=== PATIENT | female | born 1940 | race Asian ===

== ENCOUNTER → 2018-06-25 | Outpatient (CLI) | payer MEDICARE ==
--- NOTE | 2018-06-25 14:24 | ECHOS ---
STRESS ECHOCARDIOGRAM INDICATIONS: Shortness of breath. BASELINE HEART RATE: 48 BASELINE BLOOD PRESSURE: 102/53 MAXIMUM HEART RATE: 127 MAXIMUM BLOOD PRESSURE: 138/65 85% MPHR: 122 100% MPHR: 143 METS: 9.7 MAXIMUM STAGE REACHED: 3 TOTAL EXERCISE TIME: 8:00 CLINICAL INFORMATION: The patient was exercised for a total period of 8 minutes. The peak heart rate of 127 was achieved. Maximum blood pressure of 138/65 mmHg was noted. Resting EKG shows normal sinus rhythm with normal UT interval and QRS duration and normal ST-T waves. About [address]-segment depression is noted at the peak exercise. Intermittent PACs were noted. The baseline echocardiographic images reveals normal left ventricular chamber size with mild degree of left ventricular hypertrophy and normal left ventricular systolic functions. Aortic valve is calcified with diminished aortic leaflet excursion suggestive of moderate degree of aortic stenosis. In the immediate postexercise period normal increase in the wall thickness and contractility is noted. FINAL IMPRESSION: This stress echocardiographic study is negative for stress-induced ischemia. The patient has a calcified aortic valve with a suggestion of moderate degree of aortic stenosis. There was about [address]-segment depression noted without any symptoms of angina. This could be secondary to hypertension and aortic stenosis. MMODL / IJN: [id number] /
== END | disposition home or self-care (01) ==
LOC: RADNMMAIN 08:41
PROVIDERS: ATTEND Internal Medicine Cardiovascular Disease
DX: I35.8 Other nonrheumatic aortic valve disorders (principal); R94.31 Abnormal electrocardiogram [ECG] [EKG]
CPT/HCPCS: 93351

== ENCOUNTER → 2022-06-16 | Outpatient (CLI) | payer MEDICARE ==
[2022-06-16 11:54] LABS: Amorphous Sediment,Urine Rare /hpf; Appearance,Urine Clear (Clear); Bacteria,Urine Occasional /hpf; Bilirubin,Urine Negative (Negative); Blood,Urine Negative (Negative); Color,Urine Yellow; Glucose,Urine (UA) Negative (Negative); Ketones,Urine Negative (Negative); Leukocyte Esterase,Urine Small (Negative); Mucus,Urine Rare /hpf; Nitrite,Urine Positive (Negative); Protein,Urine Trace (Negative); RBC,Urine 2 /hpf (0-5); Squamous Epithelial Cell,Urine 1 /hpf (0-4); Urobilinogen,Urine <2.0 mg/dL (<2.0); WBC,Urine 5 /hpf (0-5)
[2022-06-16 14:53] LABS: HCT 37.2 % (37.2-46.3); HGB 12.2 g/dL (12.0-15.0); MCH 30.8 pg (27.0-32.0); MCHC 32.8 g/dL (32.0-37.0); MCV 93.9 fL (80.0-97.0); Mean Platelet Volume 12.4 fL (9.5-12.2); NRBC Per 100 WBC 0 /100 WBCS (0.0-0.0); Platelet Count 130 X 10*3/uL (140-440); RBC 3.96 X 10*6/uL (4.10-5.20); RDW 12.3 % (11.5-14.5); WBC 5.57 X 10*3/uL (4.50-10.00)
[2022-06-16 16:09] LABS: INR 0.94 (0.90-1.11); Prothrombin Time 10.4 sec (9.9-11.9)
[2022-06-16 16:29] LABS: ALT 15 U/L (8-44); AST 19 U/L (13-35); African American GFR (CKD) 63.9 (60.0-200.0); Albumin 4.3 g/dL (3.8-4.9); Albumin/Globulin Ratio 1.73 (1.60-3.17); Alkaline Phosphatase 90 U/L (41-126); BUN/Creat Ratio 23.52 Ratio (12.00-20.00); Bilirubin, Conjugated <0.20 mg/dL (0.20-0.40); Blood Urea Nitrogen 22.7 mg/dL (9.0-27.0); Calcium 9.3 mg/dL (8.7-10.3); Carbon Dioxide 25.9 mmol/L (20.0-27.5); Chloride 106 mmol/L (96-109); Globulin 2.5 g/dL (1.6-3.3); Glucose 99 mg/dL (70-110); Non-African American GFR(CKD) 55.1 (60.0-200.0); Potassium 4.5 mmol/L (3.5-5.5); Sodium 143 mmol/L (135-145); Total Protein 6.7 g/dL (6.2-8.2); VLDL Calculation 16.62 mg/dL (5.00-40.00)
== END | disposition home or self-care (01) ==
LOC: LABWHC1 09:43
PROVIDERS: ATTEND Internal Medicine Cardiovascular Disease
DX: I25.10 Atherosclerotic heart disease of native coronary artery without angina pectoris (principal)
CPT/HCPCS: 36415; 80053; 80061; 81001; 82248; 85027; 85610

== ENCOUNTER 2025-02-16 15:21 | Inpatient (IN) | payer MEDICARE ==
--- NOTE | 2025-02-16 15:50 | ED ---
General Adult HPI - General Chief complaint: Neuro Symptoms/Deficit Stated complaint: no balance, fallen Time Seen by Provider: 02/16/25 15:31 Source: patient Mode of arrival: wheelchair Limitations: no limitations - History of Present Illness Initial comments: Patient presents to the ED with her for evaluation. Patient states that she noticed that she noticed that she was off balance towards her left side when she got out of her car at about 6 PM yesterday, and she feels that her left leg was weak at that time. Patient states that these symptoms then resolved, but returned again at about 1 AM this morning when she was going to the bathroom. Patient states that she fell in the bathroom due to this left leg weakness, and she bumped/injured her left forearm when she fell. Patient denies sustaining any other injury from her fall. Patient states that she had mild left leg weakness earlier today as well, but she denies having any left leg weakness currently. Patient also states that she has had a mild headache for the past couple of days. Patient denies sustaining a head injury when she fell, and she also denies LOC. Patient states that she does take aspirin daily, and she states that she took 2 baby aspirin earlier today. Patient also states that she has had urinary frequency since yesterday, but she denies dysuria or hematuria. Patient denies fever or chills, focal numbness, visual changes, speech difficulty, neck/back/lower extremity pain, chest pain, dyspnea, palpitations, dizziness, syncope, abdominal pain, nausea or vomiting, diarrhea, bloody or melanotic stool, or any other symptoms or complaints. - Related Data Home Medications Medication Instructions Recorded Confirmed Aspirin EC [Ecotrin Low Dose] 81 mg PO DAILY 02/16/25 02/16/25 NIFEdipine XL [Procardia Xl] 30 mg PO DAILY 02/16/25 02/16/25 lisinopriL [Prinivil] 20 mg PO HS 02/16/25 02/16/25 Allergies Allergy/AdvReac Type Severity Reaction Status Date / Time Sulfa (Sulfonamide AdvReac headache Verified 02/16/25 18:12 Antibiotics) and blood pressure issues Review of Systems ROS Statement: Those systems with pertinent positive or pertinent negative responses have been documented in the HPI. ROS Other: All systems not noted in ROS Statement are negative. Past Medical History Past Medical History: Hyperlipidemia, Hypertension History of Any Multi-Drug Resistant Organisms: None Reported Past Surgical History: No Surgical Hx Reported Additional Past Surgical History / Comment(s): aortic valve replacement (2022) Past Psychological History: No Psychological Hx Reported Smoking Status: Never smoker Past Alcohol Use History: None Reported Past Drug Use History: None Reported General Exam Limitations: no limitations General appearance: alert, in no apparent distress Head exam: Present: atraumatic, normocephalic Eye exam: Present: normal appearance, PERRL, EOMI ENT exam: Present: mucous membranes moist, TM's normal bilaterally Neck exam: Present: normal inspection, full ROM, other (Trachea is in midline). Absent: tenderness Respiratory exam: Present: normal lung sounds bilaterally. Absent: respiratory distress, wheezes, rales, rhonchi, stridor Cardiovascular Exam: Present: regular rate, normal rhythm, normal heart sounds, other GI/Abdominal exam: Present: soft. Absent: distended, tenderness, guarding Extremities exam: Present: full ROM, other (Swelling, ecchymosis and tenderness (consistent with hematoma) is noted along the patient's left mid forearm region). Absent: pedal edema Back exam: Present: normal inspection. Absent: tenderness Neurological exam: Present: alert, oriented X3, CN II-XII intact, other (NIH stroke scale score = 0). Absent: motor sensory deficit Psychiatric exam: Present: normal affect Skin exam: Present: warm, dry, intact Course Vital Signs 02/16/25 02/16/25 02/16/25 15:24 15:40 16:52 Temperature 97.2 F L Pulse Rate 66 59 L 57 L Respiratory 16 18 18 Rate Blood Pressure 156/70 148/72 150/70 O2 Sat by Pulse 98 98 97 Oximetry 02/16/25 18:09 Temperature Pulse Rate 67 Respiratory 18 Rate Blood Pressure 146/75 O2 Sat by Pulse 98 Oximetry - Reevaluation(s) Reevaluation #1: 02/16/25 18:09 Patient denies development of any new symptoms while in the ED. Patient continues to have a normal/nonfocal neurological exam. Patient and are aware the patient's test results, and they both agree with hospital admission at this time. 02/16/25 18:16 Case, H&P, test results and ED management were discussed with Dr. Coronado. She accepts hospital admission. She agrees with the neurology consultation. She has no further recommendations at this time. EKG Findings - EKG Comments: EKG Findings:: ED physician interpretation (interpreted by me): Normal sinus rhythm, no ectopy, ventricular rate of 61 bpm, normal AR and QRS intervals, normal QT interval, normal axis, no ST or T wave abnormality Medical Decision Making - Medical Decision Making Was pt. sent in by a medical professional or institution (, PA, WOOLING MACHINE OPERATOR, urgent care, hospital, or half-way...) When possible be specific @ -No Did you speak to anyone other than the patient for history (EMS, parent, family, police, friend...)? What history was obtained from this source @ -No Did you review nursing and triage notes (agree or disagree)? Why? @ -I reviewed and agree with nursing and triage notes Were old charts reviewed (outside hosp., previous admission, EMS record, old EKG, old radiological studies, urgent care reports/EKG's, half-way records)? Report findings @ -No old charts were reviewed Differential Diagnosis (chest pain, altered mental status, abdominal pain women, abdominal pain men, vaginal bleeding, weakness, fever, dyspnea, syncope, headache, dizziness, GI bleed, back pain, seizure, CVA, palpatations, mental health, musculoskeletal)? @ -Headache, intracranial hemorrhage, intracranial mass, CVA, TIA, ra diculopathy, neuropathy, balance issues, fall, contusion, fracture, hematoma, electrolyte abnormality, dehydration, renal disease, this is not meant to be a complete list. EKG interpreted by me (3pts min.). @ -As above X-rays interpreted by me (1pt min.). @ -Chest x-ray is reviewed myself and shows no acute cardiopulmonary process. I agree with the radiologist's interpretation as above. CT interpreted by me (1pt min.). @ -Noncontrast head CT was reviewed myself and shows no acute intracranial abnormality. I agree with the radiologist's interpretation as above. U/S interpreted by me (1pt. min.). @ -None done What testing was considered but not performed or refused? (CT, X-rays, U/S, lab s)? Why? @ -None What meds were considered but not given or refused? Why? @ -None Did you discuss the management of the patient with other professionals (professionals i.e. , PA, WOOLING MACHINE OPERATOR, lab, RT, psych nurse, social service coordinator, disability hearing officer, teacher, chief contract officer, disease case manager)? Give summary @ -As above. Was smoking cessation discussed for >3mins.? @ -No Was critical care preformed (if so, how long)? @ -Yes, 35 minutes. Were there social determinants of health that impacted care today? How? (Homeles sness, low income, unemployed, alcoholism, drug addiction, transportation, low edu. Level, literacy, decrease access to med. care, senior living, rehab)? @ -No Was there de-escalation of care discussed even if they declined (Discuss DNR or withdrawal of care, Hospice)? DNR status @ -No What co-morbidities impacted this encounter? (DM, HTN, Smoking, COPD, CAD, Cancer, CVA, ARF, Chemo, Hep., AIDS, mental health diagnosis, sleep apnea, morbid obesity)? @ -None Was patient admitted / discharged? Hospital course, mention meds given and route, prescriptions, significant lab abnormalities, going to OR and other pertinent info. @ -Patient has a normal/nonfocal neurological exam in the ED and an NIH stroke scale score of 0. Patient's noncontrast head imaging is negative. Patient's CT angiography neck demonstrates a 54% stenosis of the right carotid bifurcation. Patient has been treated with aspirin in the ED. Will admit the patient to the hospital for further TIA/CVA workup and neurology consultation. Dr. Coronado has accepted hospital admission. Patient and agree with this plan. Undiagnosed new problem with uncertain prognosis? @ -No Drug Therapy requiring intensive monitoring for toxicity (Heparin, Nitro, Insulin, Cardizem)? @ -No Were any procedures done? @ -No Diagnosis/symptom? @ -Headache, intermittent left lower extremity weakness, fall, left forearm contusion Acute, or Chronic, or Acute on Chronic? @ -Acute Uncomplicated (without systemic symptoms) or Complicated (systemic symptoms)? @ -Default Side effects of treatment? @ -No Exacerbation, Progression, or Severe Exacerbation? @ -No Poses a threat to life or bodily function? How? (Chest pain, [place], [place], pneumonia, PE, COPD, DKA, ARF, appy, cholecystitis, CVA, Diverticulitis, Homicidal, Suicidal, threat to staff... and all critical care pts) @ -No - Lab Data Result diagrams: 02/16/25 15:36 02/16/25 15:36 Lab Results 02/16/25 02/16/25 02/16/25 Range/Units 15:36 15:36 15:36 WBC 7.30 (4.50-10.00) 10*3/uL RBC 4.03 L (4.10-5.20) 10*6/uL Hgb 12.6 (12.0-15.0) g/dL Hct 37.4 (37.2-46.3) % MCV 92.8 (80.0-97.0) fL MCH 31.3 (27.0-32.0) pg MCHC 33.7 (32.0-37.0) g/dL Plt Count 120 L (140-440) 10*3/uL MPV 11.9 (9.5-12.2) fL Immature Gran % (Auto) 0.1 % Neutrophils % 58.2 % Lymphocytes % 31.5 % Monocytes % 7.9 % Eosinophils % 1.5 % Basophils % 0.8 % Immature Gran # 0.01 (0.00-0.04) 10*3/uL Neutrophils # 4.24 (1.80-7.70) 10*3/uL Lymphocytes # 2.30 (0.90-5.00) 10*3/uL Monocytes # 0.58 (0.20-1.00) 10*3/uL Eosinophils # 0.11 (0.04-0.35) 10*3/uL Basophils # 0.06 (0.00-0.10) 10*3/uL PT 10.0 (10.0-12.5) sec INR 0.9 (<1.2) APTT 22.1 (22.0-30.0) sec Sodium 137 (137-145) mmol/L Potassium 4.2 (3.5-5.1) mmol/L Chloride 105 (98-107) mmol/L Carbon Dioxide 23 (22-30) mmol/L Anion Gap 9 mmol/L BUN 33 H (7-17) mg/dL Creatinine 1.16 H (0.52-1.04) mg/dL Est GFR (CKD-EPI)AfAm 50 (>60 ml/min/1.73 sqM) Est GFR (CKD-EPI)NonAf 44 (>60 ml/min/1.73 sqM) Glucose 94 (74-99) mg/dL Calcium 9.5 (8.4-10.2) mg/dL Total Bilirubin 0.6 (0.2-1.3) mg/dL AST 24 (14-36) U/L ALT 18 (4-34) U/L Alkaline Phosphatase 85 (38-126) U/L Creatine Kinase 54 (30-135) U/L Troponin I (0.000-0.034) ng/mL Total Protein 7.0 (6.3-8.2) g/dL Albumin 4.1 (3.5-5.0) g/dL Urine Color Urine Appearance (Clear) Urine pH (5.0-8.0) Ur Specific [place] (1.001-1.035) Urine Protein (Negative) Urine Glucose (UA) (Negative) Urine Ketones (Negative) Urine Blood (Negative) Urine Nitrite (Negative) Urine Bilirubin (Negative) Urine Urobilinogen (<2.0) mg/dL Ur Leukocyte Esterase (Negative) 02/16/25 02/16/25 Range/Units 15:36 16:01 WBC (4.50-10.00) 10*3/uL RBC (4.10-5.20) 10*6/uL Hgb (12.0-15.0) g/dL Hct (37.2-46.3) % MCV (80.0-97.0) fL MCH (27.0-32.0) pg MCHC (32.0-37.0) g/dL Plt Count (140-440) 10*3/uL MPV (9.5-12.2) fL Immature Gran % (Auto) % Neutrophils % % Lymphocytes % % Monocytes % % Eosinophils % % Basophils % % Immature Gran # (0.00-0.04) 10*3/uL Neutrophils # (1.80-7.70) 10*3/uL Lymphocytes # (0.90-5.00) 10*3/uL Monocytes # (0.20-1.00) 10*3/uL Eosinophils # (0.04-0.35) 10*3/uL Basophils # (0.00-0.10) 10*3/uL PT (10.0-12.5) sec INR (<1.2) APTT (22.0-30.0) sec Sodium (137-145) mmol/L Potassium (3.5-5.1) mmol/L Chloride (98-107) mmol/L Carbon Dioxide (22-30) mmol/L Anion Gap mmol/L BUN (7-17) mg/dL Creatinine (0.52-1.04) mg/dL Est GFR (CKD-EPI)AfAm (>60 ml/min/1.73 sqM) Est GFR (CKD-EPI)NonAf (>60 ml/min/1.73 sqM) Glucose (74-99) mg/dL Calcium (8.4-10.2) mg/dL Total Bilirubin (0.2-1.3) mg/dL AST (14-36) U/L ALT (4-34) U/L Alkaline Phosphatase (38-126) U/L Creatine Kinase (30-135) U/L Troponin I <0.012 (0.000-0.034) ng/mL Total Protein (6.3-8.2) g/dL Albumin (3.5-5.0) g/dL Urine Color Colorless Urine Appearance Clear (Clear) Urine pH 6.5 (5.0-8.0) Ur Specific [place] 1.002 (1.001-1.035) Urine Protein Negative (Negative) Urine Glucose (UA) Negative (Negative) Urine Ketones Negative (Negative) Urine Blood Negative (Negative) Urine Nitrite Negative (Negative) Urine Bilirubin Negative (Negative) Urine Urobilinogen <2.0 (<2.0) mg/dL Ur Leukocyte Esterase Negative (Negative) - Radiology Data Chest x-ray: No acute cardiopulmonary disease/process. Left forearm x-rays: No evidence of acute fracture. Noncontrast head CT: 1. No acute intracranial process. 2. Nonspecific white matter changes, likely secondary to chronic small vessel ischemic disease. CT angiography head/neck with IV contrast: 1. No evidence of dissection of the cervical internal carotid arteries or vertebral arteries. 2. 54% stenosis of the right carotid bifurcation. No evidence for significant stenosis of the left carotid bifurcation. 3. No evidence of intracranial high-grade stenosis or intracranial aneurysm. Critical Care Time Critical Care Time: Yes Total Critical Care Time: 35 Disposition Clinical Impression: Headache, Left-sided weakness, Fall, Contusion of left arm Disposition: ADMITTED IP TO THIS HOSP Condition: Stable Is patient prescribed a controlled substance at d/c from ED?: No Referrals: Cammie Taylor DO [Primary Care Provider] - 1-2 days Time of Disposition: 18:16
[2025-02-16] MEDS: SODIUM CHLORIDE 0.9% 500 ML 500 ML IV ONE (16:01)
[2025-02-16 16:02] LABS: Basophils # (A) 0.06 10*3/uL (0.00-0.10); Basophils % (A) 0.8 %; Eosinophils # (A) 0.11 10*3/uL (0.04-0.35); Eosinophils % (A) 1.5 %; HCT 37.4 % (37.2-46.3); HGB 12.6 g/dL (12.0-15.0); Lymphocytes % (A) 31.5 %; MCH 31.3 pg (27.0-32.0); MCHC 33.7 g/dL (32.0-37.0); MCV 92.8 fL (80.0-97.0); Mean Platelet Volume 11.9 fL (9.5-12.2); Monocytes # (A) 0.58 10*3/uL (0.20-1.00); Monocytes % (A) 7.9 %; Neutrophils # (A) 4.24 10*3/uL (1.80-7.70); Neutrophils % (A) 58.2 %; Platelet Count 120 10*3/uL (140-440); RBC 4.03 10*6/uL (4.10-5.20); RDW 12.5 % (11.5-14.5)
[2025-02-16 16:08] LABS: Appearance,Urine Clear (Clear); Bilirubin,Urine Negative (Negative); Blood,Urine Negative (Negative); Color,Urine Colorless; Glucose,Urine (UA) Negative (Negative); Ketones,Urine Negative (Negative); Leukocyte Esterase,Urine Negative (Negative); Nitrite,Urine Negative (Negative); PH, Urine 6.5 (5.0-8.0); Protein,Urine Negative (Negative); Specific Gravity,Urine 1.002 (1.001-1.035); Urobilinogen,Urine <2.0 mg/dL (<2.0)
[2025-02-16 16:11] LABS: INR 0.9 (<1.2); Partial Thromboplastin Time 22.1 sec (22.0-30.0)
[2025-02-16 16:48] LABS: ALT 18 U/L (4-34); AST 24 U/L (14-36); African American GFR (CKD) 50 (>60 ml/min/1.73 sqM); Albumin 4.1 g/dL (3.5-5.0); Alkaline Phosphatase 85 U/L (38-126); Anion Gap 9 mmol/L; Blood Urea Nitrogen 33 mg/dL (7-17); Calcium 9.5 mg/dL (8.4-10.2); Carbon Dioxide 23 mmol/L (22-30); Chloride 105 mmol/L (98-107); Creatine Kinase 54 U/L (30-135); Glucose 94 mg/dL (74-99); Non-African American GFR(CKD) 44 (>60 ml/min/1.73 sqM); Potassium 4.2 mmol/L (3.5-5.1); Sodium 137 mmol/L (137-145); Total Bilirubin 0.6 mg/dL (0.2-1.3)
--- NOTE | 2025-02-16 16:54 | XR ---
EXAMINATION TYPE: XR forearm LT DATE OF EXAM: 02/16/2025 4:31 PM COMPARISON: None CLINICAL INDICATION: Female, 84 years old with history of left forearm injury, pain TECHNIQUE: XR forearm LT; forearm was examined in AP and lateral projections. FINDINGS: No acute osseous pathology, soft tissue swelling or joint dislocations are seen. IV cannul a present. IMPRESSION: No evidence of acute fracture. [facility], , 02/16/2025 4:52 PM
--- NOTE | 2025-02-16 16:55 | XR ---
EXAMINATION TYPE: XR chest 2V DATE OF EXAM: 02/16/2025 4:31 PM COMPARISON: None CLINICAL INDICATION: Female, 84 years old with history of altered mental status; TECHNIQUE: XR chest 2V Frontal and lateral views of the chest. FINDINGS: Lungs/Pleura: There is no evidence of pleural effusion, focal consolidation, or pneumothorax. Pulmonary vascularity: Unremarkable. Heart/mediastinum: Cardiomediastinal silhouette is unremarkable. Post aortic valve repair changes. A therosclerosis of the arterial vasculature. Musculoskeletal: No acute osseous pathology. IMPRESSION: No acute cardiopulmonary disease/process. [facility], , 02/16/2025 4:53 PM
--- NOTE | 2025-02-16 17:25 | CT ---
EXAMINATION TYPE: CT brain wo con DATE OF EXAM: 02/16/2025 5:09 PM COMPARISON: None. CLINICAL INDICATION: Female, 84 years old with history of Neuro deficit, acute, stroke suspected, cva TECHNIQUE: Brain: Axial CT images of the brain were obtained with coronal and sagittal reformats created and rev iewed. Contrast used: None. Oral contrast used: None. CT DLP: 1176.6 mGycm, Automated exposure control for dose reduction was used. FINDINGS: Brain: Extra-axial spaces: No abnormal extra-axial fluid collections. Ventricular system: Dilatation in proportion to cerebral atrophy. Cerebral parenchyma: Cerebral atrophy. No acute intraparenchymal hemorrhage or mass effect. The porras -white junction is well differentiated. Scattered hypoattenuating areas are seen within the white mat ter. Cerebellum: Unremarkable. Mass effect: No evidence of midline shift. Intracranial vasculature: Atherosclerotic calcifications of the intracranial vessels. Soft tissues: Normal. Calvarium/osseous structures: No depressed skull fracture. Paranasal sinuses and mastoid air cells: Mild scattered paranasal sinus disease. Visualized orbits: Orbital contents are intact. IMPRESSION: 1. No acute intracranial process. 2. Nonspecific white matter changes, likely secondary to chronic small vessel ischemic disease. [facility], , 02/16/2025 5:22 PM
--- NOTE | 2025-02-16 18:01 | CT ---
EXAMINATION TYPE: CT angio head neck DATE OF EXAM: 02/16/2025 5:35 PM COMPARISON: . CLINICAL INDICATION: Female, 84 years old with history of Neuro deficit, acute, stroke suspected; PHH , cva TECHNIQUE: Axially acquired helical CT angiogram of the head and neck was obtained with contrast. Axi al images are supplemented with 3D reconstructions and MIP images which were post-processed at an in dependent workstation. NASCET criteria used. Contrast used:65 mL of Isovue 370 with IV Contrast, Oral contrast used: None. CT DLP: 315.9 mGycm, Automated exposure control for dose reduction was used. FINDINGS: CTA HEAD: No evidence of acute intracranial hemorrhage, mass effect, or midline shift. The ventricles, sulci, a nd cisterns are unremarkable. Arachnoid granulation seen posterior skull. Vertebral arteries: The vertebral arteries are patent. Vertebral artery dominance: Codominant Basilar artery: The basilar artery is intact. The basilar artery bifurcation is normal. Internal Carotid arteries: The cervical, petrous, cavernous and supraclinoid segments are normal. JODI: Patent with no evidence of aneurysm. ACOM: Present without evidence of aneurysm. MCA: Patent with no evidence of aneurysm. PRODUCT APPLICATIONS SCIENTIST: Patent with no evidence of aneurysm. PCOM: Hypoplastic bilaterally. Dural sinuses: Patent. CTA NECK: Right Carotid System: The common carotid and external carotid arteries are patent. 54 % stenosis at the carotid bifurcation secondary to calcified/noncalcified plaque. The rest of the internal carotid artery is patent. Left Carotid System: The common carotid and external carotid arteries are patent. There is less than 25% stenosis at the c arotid bifurcation secondary to calcified plaque. The rest of the internal carotid artery is patent. Vertebral arteries are patent without evidence hemodynamically significant stenosis. There is a three-vessel aortic arch. The origins of the great vessels are patent. No evidence of hemo dynamically significant stenosis. No evidence for focal lesions consolidation, pneumothorax or pleural effusion. IMPRESSION: 1. No evidence of dissection of the cervical internal carotid arteries or vertebral arteries. 2. 54% stenosis of the right carotid bifurcation. No evidence for significant stenosis of the left c arotid bifurcation. 3. No evidence of intracranial high-grade stenosis or intracranial aneurysm. [facility], , 02/16/2025 5:59 PM
[2025-02-16] MEDS: ASPIRIN 81 MG PO STA (18:08)
[2025-02-16] MEDS ORDERED: NALOXONE 0.4 MG/ML 1 ML VIAL IV PRN (18:20)
--- NOTE | 2025-02-16 23:16 | P.HPIM ---
History of Present Illness H&P Date: 02/16/25 Chief Complaint: Of balance/fall Patient presents to the ED with her for evaluation. Patient states that she noticed that she noticed that she was off balance towards her left side when she got out of her car at about 6 PM yesterday, and she feels that her left leg was weak at that time. Patient states that these symptoms then resolved, but returned again at about 1 AM this morning when she was going to the bathroom. Patient states that she fell in the bathroom due to this left leg weakness, and she bumped/injured her left forearm when she fell. Patient denies sustaining any other injury from her fall. Patient states that she had mild left leg weakness earlier today as well, but she denies having any left leg weakness currently. Patient also states that she has had a mild headache for the past couple of days. Patient denies sustaining a head injury when she fell, and she also denies LOC. Patient states that she does take aspirin daily, and she s tates that she took 2 baby aspirin earlier today. Patient also states that she has had urinary frequency since yesterday, but she denies dysuria or hematuria. Patient denies fever or chills, focal numbness, visual changes, speech difficulty, neck/back/lower extremity pain, chest pain, dyspnea, palpitations, dizziness, syncope, abdominal pain, nausea or vomiting, diarrhea, bloody or melanotic stool, or any other symptoms or complaints. EKG Findings:: Normal sinus rhythm, no ectopy, ventricular rate of 61 bpm, normal MS and QRS intervals, normal QT interval, normal axis, no ST or T wave abnormality -Chest x-ray is reviewed myself and shows no acute cardiopulmonary process. I agree with the radiologist's interpretation as above. -Noncontrast head CT was reviewed myself and shows no acute intracranial abnormality. Patient has a normal/nonfocal neurological exam in the ED and an NIH stroke scale score of 0. Patient's noncontrast head imaging is negative. Patient's CT angiography neck demonstrates a 54% stenosis of the right carotid bifurcation. Patient has been treated with aspirin in the ED. Will admit the patient to the hospital for further TIA/CVA workup and neurology consultation. Review of Systems REVIEW OF SYSTEMS: CONSTITUTIONAL: No fever, no malaise, no fatigue. HEENT: No recent visual problems or hearing problems. Denied any sore throat. CARDIOVASCULAR: No chest pain, orthopnea, PND, no palpitations, no syncope. PULMONARY: No shortness of breath, no cough, no hemoptysis. GASTROINTESTINAL: No diarrhea, no nausea, no vomiting, no abdominal pain. NEUROLOGICAL: No headaches, no weakness, no numbness. HEMATOLOGICAL: Denies any bleeding or petechiae. GENITOURINARY: Denies any burning micturition, frequency, or urgency. MUSCULOSKELETAL/RHEUMATOLOGICAL: Denies any joint pain, swelling, or any muscle pain. ENDOCRINE: Denies any polyuria or polydipsia. The rest of the 14-point review of systems is negative. Past Medical History Past Medical History: Hyperlipidemia, Hypertension History of Any Multi-Drug Resistant Organisms: None Reported Past Surgical History: No Surgical Hx Reported Additional Past Surgical History / Comment(s): aortic valve replacement (2022) Past Psychological History: No Psychological Hx Reported Smoking Status: Never smoker Past Alcohol Use History: None Reported Past Drug Use History: None Reported Medications and Allergies Home Medications Medication Instructions Recorded Confirmed Type Aspirin EC [Ecotrin Low Dose] 81 mg PO DAILY 02/16/25 02/16/25 History NIFEdipine XL [Procardia Xl] 30 mg PO DAILY 02/16/25 02/16/25 History lisinopriL [Prinivil] 20 mg PO HS 02/16/25 02/16/25 History Allergies Allergy/AdvReac Type Severity Reaction Status Date / Time Sulfa (Sulfonamide AdvReac headache Verified 02/16/25 18:12 Antibiotics) and blood pressure issues Physical Exam Vitals: Vital Signs Temp Pulse Resp BP Pulse Ox 02/16/25 18:09 67 18 146/75 98 02/16/25 16:52 57 L 18 150/70 97 02/16/25 15:40 59 L 18 148/72 98 02/16/25 15:24 97.2 F L 66 16 156/70 98 Intake and Output 02/16/25 02/16/25 02/16/25 06:59 14:59 22:59 Other: Weight 50.802 kg General appearance: alert, in no apparent distress Head exam: Present: atraumatic, normocephalic Eye exam: Present: normal appearance, PERRL, EOMI ENT exam: Present: mucous membranes moist, TM's normal bilaterally Neck exam: Present: normal inspection, full ROM, other (Trachea is in midline). Absent: tenderness Respiratory exam: Present: normal lung sounds bilaterally. Absent: respiratory distress, wheezes, rales, rhonchi, stridor Cardiovascular Exam: Present: regular rate, normal rhythm, normal heart sounds, other GI/Abdominal exam: Present: soft. Absent: distended, tenderness, guarding Extremities exam: Present: full ROM, other (Swelling, ecchymosis and tenderness (consistent with hematoma) is noted along the patient's left mid forearm region). Absent: pedal edema Back exam: Present: normal inspection. Absent: tenderness Neurological exam: Present: alert, oriented X3, CN II-XII intact, other (NIH stroke scale score = 0). Absent: motor sensory deficit Psychiatric exam: Present: normal affect Skin exam: Present: warm, dry, intact Results CBC & Chem 7: 02/16/25 15:36 02/16/25 15:36 Labs: Abnormal Lab Results - Last 24 Hours (Table) 02/16/25 02/16/25 Range/Units 15:36 15:36 RBC 4.03 L (4.10-5.20) 10*6/uL Plt Count 120 L (140-440) 10*3/uL BUN 33 H (7-17) mg/dL Creatinine 1.16 H (0.52-1.04) mg/dL Assessment and Plan Assessment: 1. Strokelike symptoms Patient has a normal/nonfocal neurological exam in the ED and an NIH stroke scale score of 0. CT head is negative for any acute intracranial abnormality. --Patient's CT angiography neck demonstrates a 54% stenosis of the right carotid bifurcation. Patient was treated with aspirin in the ED. Will admit the patient to the hospital for further TIA/CVA workup and neurology consultation. -- Will order neurochecks per protocol - Consult PT/OT/TECHNOLOGY DIRECTOR - Monitor Accu-Cheks per protocol - Recommend 2D echo 2. Acute renal injury - Patient received IV fluids in the ED; monitor strict BRIGID's, daily weights, renal function electrolytes; avoid nephrotoxins and hypotension 3. Hypertension; patient's symptoms have resolved; will hold home dose of lisinopril and Procardia. Permissive hypertension - Will plan to treat if systolic blood pressures greater than 220 or diastolic blood pressures greater than 110 DVT prophylaxis; SCDs CODE STATUS; full code
[2025-02-17 08:09] LABS: ALT 14 U/L (8-44); AST 14 U/L (13-35); Albumin 3.6 g/dL (3.8-4.9); Albumin/Globulin Ratio 1.71 Ratio (1.60-3.17); Alkaline Phosphatase 79 U/L (41-126); Blood Urea Nitrogen 28.8 mg/dL (9.0-27.0); Calcium 8.5 mg/dL (8.7-10.3); Carbon Dioxide 25.7 mmol/L (21.6-31.8); Chloride 108 mmol/L (96-109); Globulin 2.1 g/dL (1.6-3.3); Glucose 89 mg/dL (70-110); Potassium 3.8 mmol/L (3.5-5.5); Sodium 143 mmol/L (135-145); Total Bilirubin 0.5 mg/dL (0.3-1.2); Total Protein 5.7 g/dL (6.2-8.2)
[2025-02-17 08:42] LABS: Basophils # (A) 0.06 X 10*3/uL (0.00-0.10); Basophils % (A) 0.9 %; Eosinophils # (A) 0.14 X 10*3/uL (0.04-0.35); Eosinophils % (A) 2.2 %; HCT 33.8 % (37.2-46.3); HGB 10.9 g/dL (12.0-15.0); Lymphocytes % (A) 34.8 %; MCH 30.2 pg (27.0-32.0); MCHC 32.2 g/dL (32.0-37.0); MCV 93.6 FL (80.0-97.0); Mean Platelet Volume 12.6 FL (9.5-12.2); Monocytes # (A) 0.59 X 10*3/uL (0.20-1.00); Monocytes % (A) 9.3 %; NRBC Per 100 WBC 0 X 10*3/uL (0.00-0.01); Neutrophils # (A) 3.32 X 10*3/uL (1.80-7.70); Neutrophils % (A) 52.5 %; Platelet Count 125 X 10*3/uL (140-440); RBC 3.61 X 10*6/uL (4.10-5.20); RDW 12.8 % (11.5-14.5); WBC 6.33 X 10*3/uL (4.50-10.00)
[2025-02-17] MEDS: NIFEdipine XL 30 MG TAB.ER.24 PO SCH (08:51)
[2025-02-17] MEDS: ASPIRIN 81 MG PO SCH (08:51)
--- NOTE | 2025-02-17 15:47 | P.CNNES ---
History of Present Illness Consult date: 02/17/25 Requesting physician: Juan Joe Reason for Consult: Intermittent left lower extremity weakness, rule out TIA/CVA History of Present Illness: Patient is a 84-year-old right-handed female came to the hospital yesterday at 3:21 PM for strokelike symptoms. Patient's family members were also present and they provided with a history. They mentioned that patient has been falling and when she moves, she has "no control of the left side". Her symptoms started Monday at at around 4 PM (1 day prior to arrival to ER). She noticed that she would start veering to the left side. About 4 to 6 hours later, at 11:30 PM, she fell in the bathroom between the bathtub and the commode and just went down. Next day on Monday (yesterday), she was walking talking okay. Patient went to [place] with her family and when she came back from [place] at 2 PM, she started losing balance, leaning to the left and tending to fall again therefore they brought her to the hospital. Patient denies any slurred speech facial droop. She does have a slight headache and she never gets a headache. Denies any focal numbness tingling. Patient denies dizziness although family mentions that she had told earlier that she was dizzy. Vital signs on arrival blood pressure 156/70, pulse rate 66, temperature 97.2. Blood test shows normal CBC with platelets slightly low at 280, normal PT PTT, normal electrolytes BUN 33 creatinine 1.16, hepatic panel is normal troponin negative CK normal. UA negative. Chest x-ray showed no acute cardiopulmonary process. EKG shows sinus rhythm. CT head revealed no acute intracranial pr ocess. Nonspecific white matter changes, likely secondary to chronic small vessel ischemic disease. I personally reviewed CT head, agree with the findings. There is evidence of moderate generalized and central atrophy as well. Patient states she has history of a sinus cold infection about a month ago. Patient denies any loss of hearing, any vertigo. Patient has history of hypertension but no diabetes. Never smoked or drink. No history of strokes or TIA. Patient has history of aortic valve replacement in 2022. Home medications include aspirin 81 mg, lisinopril 20 mg and nifedipine. Patient has chronic left knee and hip pain since 2022 for which she is getting p hysical therapy outpatient. Review of Systems All pertinent positive and negative review of systems mentioned in the HPI. Otherwise unremarkable. Past Medical History Past Medical History: Hyperlipidemia, Hypertension History of Any Multi-Drug Resistant Organisms: None Reported Past Surgical History: No Surgical Hx Reported Additional Past Surgical History / Comment(s): aortic valve replacement (2022) Past Psychological History: No Psychological Hx Reported Smoking Status: Never smoker Past Alcohol Use History: None Reported Past Drug Use History: None Reported Medications and Allergies Home Medications Medication Instructions Recorded Confirmed Type Aspirin EC [Ecotrin Low Dose] 81 mg PO DAILY 02/16/25 02/16/25 History NIFEdipine XL [Procardia Xl] 30 mg PO DAILY 02/16/25 02/16/25 History lisinopriL [Prinivil] 20 mg PO HS 02/16/25 02/16/25 History Allergies Allergy/AdvReac Type Severity Reaction Status Date / Time Sulfa (Sulfonamide AdvReac headache Verified 02/16/25 18:12 Antibiotics) and blood pressure issues Physical Examination - Vital Signs Vital Signs: Vital Signs Temp Pulse Pulse Resp BP BP BP 02/17/25 07:08 98.1 F 60 16 120/53 02/17/25 01:18 98.1 F 58 L 16 111/67 02/16/25 20:45 97.4 F L 71 16 169/71 02/16/25 20:18 90 18 168/80 02/16/25 18:09 67 18 146/75 02/16/25 16:52 57 L 18 150/70 02/16/25 15:40 59 L 18 148/72 02/16/25 15:24 97.2 F L 66 16 156/70 Pulse Ox 02/17/25 07:08 96 02/17/25 01:18 99 02/16/25 20:45 98 02/16/25 20:18 100 02/16/25 18:09 98 02/16/25 16:52 97 02/16/25 15:40 98 02/16/25 15:24 98 Intake and Output 02/16/25 02/17/25 02/17/25 22:59 06:59 14:59 Intake Total 358 Balance 358 Intake: Oral 358 Other: Voiding Method Toilet Toilet Toilet # Voids 2 2 1 Weight 50.802 kg Patient is an elderly female, very pleasant, in no acute distress. Patient is alert awake oriented to time place and person. Speech and language functions are normal. Patient can name and repeat very well. No aphasia or dysarthria. Attention, concentration and fund of knowledge is adequate. On cranial nerve examination, pupils are equal, round and reacting to light, visual davis are full on confrontation, with no neglect on double simultaneous stimulation. Extraocular muscles are intact with no nystagmus. Face is symmetric, tongue protrudes to the midline. Palatal elevation and sensation normal, hearing and shoulder shrug normal, facial sensation normal. On muscle strength testing, there is no pronator drift and the strength is normal in arms and legs distally and proximally. Deep tendon reflexes are symmetric 2 at the biceps, 2 brachioradialis, 2 at the knees, 2 ankles and plantars downgoing. Sensory to touch is equal with no neglect on double simultaneous stimulation. Cerebellar function showed questionable very minimal ataxia for [id number] testing only with the left hand, but not with the right hand. No dysdiadochokinesia. No ataxia for [id number] testing on either side. Tone and bulk of muscles normal. Gait: Patient walked, but was unsteady, and patient's was helping her. When she was sitting on the side of the bed, she was starting to lean and then veer to the left side. On general examination, there is no carotid bruit or murmur, S1-S2 audible. Chest is clear on consultation. Abdomen is soft nontender. No organomegaly, bowel sounds present. Peripheral pulses are present. No peripheral edema. Results - Laboratory Findings CBC and BMP: 02/17/25 05:02 02/17/25 05:02 Abnormal Lab Findings: Abnormal Labs 02/16/25 02/16/25 02/17/25 15:36 15:36 05:02 RBC 4.03 L 3.61 L Hgb 10.9 L Hct 33.8 L Plt Count 120 L 125 L MPV 12.6 H BUN 33 H Creatinine 1.16 H Est GFR (CKD-EPI) BUN/Creatinine Ratio Calcium Total Protein Albumin 02/17/25 05:02 RBC Hgb Hct Plt Count MPV BUN 28.8 H Creatinine Est GFR (CKD-EPI) 56 L BUN/Creatinine Ratio 28.80 H Calcium 8.5 L Total Protein 5.7 L Albumin 3.6 L Assessment and Plan Assessment: * 84-year-old female, presenting with veering to the left and tendency to fall. She did fall once. No other lateralizing symptoms. Patient did have upper respiratory infection about a month ago. Uncertain if related to small stroke, or peripheral vestibular dysfunction. Patient has mild dizziness but no vertigo. 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 Vazquez, who confirmed that patient has tissue valve for TAVR, does not require anticoagulation, and cleared her for MRI. CTA of head and neck revealed no evidence of dissection of the cervical internal carotid arteries or vertebral arteries. 54% stenosis of the right carotid bifurcation. No evidence for significant stenosis of the left carotid bifurcation. No evidence of intracranial high-grade stenosis or intracranial aneurysm. Patient's symptoms are on the left side. Rule out symptomatic right ICA stenosis. Fasting a.m. lipid panel Hemoglobin A1c B12, folate, TSH Permissive hypertension for next 24-48 hours Patient was on aspirin 81 mg daily. With recurrent symptoms, we will place her on Plavix 75 mg daily for now. Neuro checks every 4 hours. Telemetry monitoring rule out any arrhythmia PT, OT, speech therapy DVT prophylaxis: Heparin 5000 units subcu every 8 hours Neurology will continue to follow. Thank you for the consult.
[2025-02-17] MEDS: CLOPIDOGREL 75 MG TAB PO SCH (15:52)
--- NOTE | 2025-02-17 17:14 | CA ---
Transthoracic Echo Report Name: Hay Judd Age: 84 Gender: F : 1940 Exam Date: 02/17/2025 16:02 Exam Location: [facility] Ht (in): 59 Wt (lb): 112 Ordering Physician: Lawanda Gifford MD Attending/Referring Phys: Chief Yeoman Marli Alonso RDCS Procedure CPT: Indications: ?CVA, hx of AVR Cardiac Hx: HTN, CARIDAD CHOL , AOV REPLACED Technical Quality: Good Contrast 1: Agitated Saline Total Dose (mL): 7 Contrast 2: Total Dose (mL): MEASUREMENTS (Male / Female) Normal Values 2D ECHO LV Diastolic Diameter PLAX 4.3 cm 4.2 - 5.9 / 3.9 - 5.3 cm LV Systolic Diameter PLAX 2.6 cm IVS Diastolic Thickness 0.9 cm 0.6 - 1.0 / 0.6 - 0.9 cm LVPW Diastolic Thickness 0.9 cm 0.6 - 1.0 / 0.6 - 0.9 cm LV Relative Wall Thickness 0.4 RV Internal Dim ED PLAX 2.7 cm LVOT Diameter 1.7 cm LA Systolic Diameter LX 3.9 cm 3.0 - 4.0 / 2.7 - 3.8 cm LV Diastolic Volume MOD 4C 62.2 cm??? LV Systolic Volume MOD 4C 19.7 cm??? LV Ejection Fraction MOD 4C 68.3 % LV Cardiac Index MOD 4C 2036.3 cm???/min???m??? LV Diastolic Length 4C 7.7 cm LV Systolic Length 4C 6.2 cm LV Diastolic Volume MOD 2C 38.1 cm??? LV Systolic Volume MOD 2C 14.4 cm??? LV Ejection Fraction MOD 2C 62.2 % LV Cardiac Index MOD 2C 1135.5 cm???/min???m??? LV Diastolic Length 2C 7.6 cm LV Systolic Length 2C 6.1 cm LA Volume 49.5 cm??? 18 - 58 / 22 - 52 cm??? LA Volume Index 33.9 cm???/m??? 16 - 28 cm???/m??? M-MODE Aortic Root Diameter MM 2.9 cm DOPPLER AV Peak Velocity 146.2 cm/s AV Peak Gradient 8.5 mmHg AV Mean Velocity 77.5 cm/s AV Mean Gradient 3.0 mmHg AV Velocity Time Integral 32.1 cm LVOT Peak Velocity 92.6 cm/s LVOT Peak Gradient 3.4 mmHg LVOT Velocity Time Integral 25.7 cm LVOT Stroke Volume 58.6 cm??? LVOT Stroke Volume Index 40.6 ml/m??? LVOT Cardiac Index 2804.2 cm???/min???m??? AV Area Cont Eq vti 1.8 cm??? AV Area Cont Eq pk 1.4 cm??? MV Peak Velocity 168.6 cm/s MV Peak Gradient 11.4 mmHg MV Mean Velocity 82.4 cm/s MV Mean Gradient 3.2 mmHg MV Velocity Time Integral 56.6 cm MV Area PHT 2.2 cm??? Mitral E Point Velocity 123.0 cm/s Mitral A Point Velocity 139.2 cm/s Mitral E to A Ratio 0.9 MV Deceleration Time 346.3 ms TR Peak Velocity 232.3 cm/s TR Peak Gradient 21.6 mmHg Right Ventricular Systolic Press 25.7 mmHg FINDINGS Left Ventricle Left ventricular ejection fraction is estimated at 55-60 %. Left ventricular cavity size normal. Left ventricular wall thickness normal. Normal left ventricular wall motion. Right Ventricle Normal right ventricular size. Right ventricular systolic pressure within normal limits. Right Atrium Normal right atrial size. No right atrial thrombus or mass seen. Negative agitated saline bubble study for right to left shunt. Left Atrium Mildly increased left atrial volume. No left atrial thrombus or mass present. Mitral Valve Structurally normal mitral valve. No evidence for mitral valve prolapse. No mitral stenosis. Mild mitral regurgitation. Aortic Valve Normally functioning bioprosthetic aortic valve without stenosis with a peak velocity 1.4of m/s, peak gradient 9 mmHg, mean gradient 3 mmHg . Tricuspid Valve Structurally normal tricuspid valve. Mild tricuspid regurgitation. Pulmonic Valve Structurally normal pulmonic valve. Mild pulmonic regurgitation. Pericardium No pericardial or pleural effusion. Aorta Normal size aortic root and proximal ascending aorta. CONCLUSIONS Normal LV size and systolic function. Aortic valve bioprosthesis is not well- seen but no significant gradient. Mild mitral and tricuspid regurgitation. No pulmonary hypertension. No pericardial effusion. Bubble study negative for [id number] shunt Previewed by: Dr. Daniel Stewart MD (Electronically Signed) Final Date: 17 Feb 2025 17:13
[2025-02-17] MEDS: lisinopriL 20 MG TAB PO SCH (20:53)
[2025-02-18 07:51] VITALS: RESP 16
[2025-02-18 08:16] LABS: Basophils # (A) 0.05 X 10*3/uL (0.00-0.10); Basophils % (A) 0.9 %; Eosinophils # (A) 0.14 X 10*3/uL (0.04-0.35); Eosinophils % (A) 2.4 %; HCT 35.5 % (37.2-46.3); HGB 11.5 g/dL (12.0-15.0); Lymphocytes # (A) 1.51 X 10*3/uL (0.90-5.00); Lymphocytes % (A) 25.8 %; MCH 30.3 pg (27.0-32.0); MCHC 32.4 g/dL (32.0-37.0); MCV 93.7 FL (80.0-97.0); Mean Platelet Volume 12.3 FL (9.5-12.2); Monocytes # (A) 0.63 X 10*3/uL (0.20-1.00); Monocytes % (A) 10.8 %; NRBC Per 100 WBC 0 X 10*3/uL (0.00-0.01); Neutrophils % (A) 59.8 %; Platelet Count 128 X 10*3/uL (140-440); RBC 3.79 X 10*6/uL (4.10-5.20); RDW 12.7 % (11.5-14.5); WBC 5.85 X 10*3/uL (4.50-10.00)
[2025-02-18] MEDS: ENOXAPARIN 40 MG/0.4 ML SYRINGE SQ SCH (08:30)
[2025-02-18 08:33] LABS: BUN/Creat Ratio 27.33 Ratio (12.00-20.00); Blood Urea Nitrogen 24.6 mg/dL (9.0-27.0); Carbon Dioxide 25.6 mmol/L (21.6-31.8); Chloride 107 mmol/L (96-109); Chol/HDL Ratio 3.41 Ratio; Glucose 106 mg/dL (70-110); LDL Cholesterol,Calculated 126.5 mg/dL (0.0-131.0); Magnesium 2.2 mg/dL (1.5-2.4); Sodium 140 mmol/L (135-145); VLDL Calculation 13.54 mg/dL (5.00-40.00)
--- NOTE | 2025-02-18 09:58 | P.PN ---
Subjective Progress Note Date: 02/17/25 Patient presents to the ED with her for evaluation. Patient states that she noticed that she noticed that she was off balance towards her left side when she got out of her car at about 6 PM yesterday, and she feels that her left leg was weak at that time. Patient states that these symptoms then resolved, but returned again at about 1 AM this morning when she was going to the bathroom. Patient states that she fell in the bathroom due to this left leg weakness, and she bumped/injured her left forearm when she fell. Patient denies sustaining any other injury from her fall. Patient states that she had mild left leg weakness earlier today as well, but she denies having any left leg weakness currently. Patient also states that she has had a mild headache for the past couple of days. Patient denies sustaining a head injury when she fell, and she also denies LOC. Patient states that she does take aspirin daily, and she states that she took 2 baby aspirin earlier today. Patient also states that she has had urinary frequency since yesterday, but she denies dysuria or hematuria. Patient denies fever or chills, focal numbness, visual changes, speech difficulty, neck/back/lower extremity pain, chest pain, dyspnea, palpitations, dizziness, syncope, abdominal pain, nausea or vomiting, diarrhea, bloody or melanotic stool, or any other symptoms or complaints. EKG Findings:: Normal sinus rhythm, no ectopy, ventricular rate of 61 bpm, normal [place] and QRS intervals, normal QT interval, normal axis, no ST or T wave abnormality -Chest x-ray is reviewed myself and shows no acute cardiopulmonary process. I agree with the radiologist's interpretation as above. -Noncontrast head CT was reviewed myself and shows no acute intracranial abnormality. Patient has a normal/nonfocal neurological exam in the ED and an NIH stroke scale score of 0. Patient's noncontrast head imaging is negative. Patient's CT angiography neck demonstrates a 54% stenosis of the right carotid bifurcation. Patient has been treated with aspirin in the ED. Will admit the patient to the hospital for further TIA/CVA workup and neurology consultation. 02/17/2025 Patient is seen in follow-up today with family at bedside and continues to have left sided weakness and deficits with drifting noted while sitting in the chair. Patient reports she has a faint headache but denies any visual disturbances including lightheadedness, dizziness or double vision. Patient denies any histo ry of CVA or TIA in the past and does report hypertension. Patient awaiting neurology evaluation. CT of the brain was negative for acute process and angio CT was performed and MRI along with echo will be ordered. Patient reports she does have history of aortic valve replacement. Patient denies any chest pain or shortness of breath. Patient denies nausea or vomiting and has been tolerating diet. Review of systems: Constitutional: No reports of fatigue, fever, or chills Cardiovascular: No reports of chest pain or palpitations Respiratory: No reports of shortness of breath or cough GI: No reports of nausea, vomiting, or diarrhea : No reports of dysuria or retention Neurovascular: reports of left-sided weakness mostly in lower extremity with difficulty ambulating All medications have been reviewed Physical exam: Gen: This is a 84-year-old female who is awake, alert and oriented x 3, well- developed, elderly appearing, thin built HEENT: Head is atraumatic, normocephalic. Pupils equal, round. Sclerae is anicteric. NECK: Supple. No JVD. No lymphadenopathy. No thyromegaly. LUNGS: Diminished breath sounds bilaterally otherwise clear to auscultation. No wheezes or rhonchi. No intercostal retractions. HEART: S1, S2 are muffled ABDOMEN: Soft. Thin. Bowel sounds are present. No masses. No tenderness. EXTREMITIES: No pedal edema. No calf tenderness. NEUROLOGICAL: Patient is awake, alert and oriented x3. Cranial nerves 2 through 12 are grossly intact. Left upper extremity brush filler hand strength 4/5, lower extremity 4/5 Assessment: -Strokelike symptoms with concerns of possible TIA versus CVA with left-sided weakness and difficulty ambulating -Patient's CT angiography neck demonstrates a 54% stenosis of the right carotid bifurcation. -Acute renal injury -Hypertension history -Hyperlipidemia history -History of aortic valve replacement in 2022 -DVT prophylaxis; SCDs -GI prophylaxis -full code Plan: Patient was admitted with left-sided weakness and difficulty ambulating that abruptly occurred with concerns of possible TIA versus CVA. Neurology consulted and pending and would recommend MRI and also 2D echo was ordered Patient did undergo CT angiogram with noted 54% stenosis on the right carotid bifurcation and is maintained on statin therapy along with aspirin, recommend outpatient vascular surgery follow-up Continue aspirin and statin therapy an MRI of the brain is ordered and pending and will await Recommend PT/OT therapy for the left-sided weakness Will discuss with neurology once MRI is resulted and discussed discharge planning Possible discharge in the next 24 to 48 hours Overall prognosis is guarded at this time The impression and plan of care has been dictated by Cristy Alanis, Nurse Practitioner as directed. Dr. Lyle MD I have performed a history and examination and MDM of this patient, discussed the same with the dictator, and agree with the dictator's assessment and plan as written ,documented as a scribe. Based on total visit time, I have performed more than 50% of the visit. Objective - Vital Signs Vital signs: Vital Signs Temp 98.1 F 02/17/25 07:08 Pulse 60 02/17/25 07:08 Resp 16 02/17/25 07:08 BP 120/53 02/17/25 07:08 Pulse Ox 96 02/17/25 07:08 FiO2 Intake & Output 02/16/25 02/17/25 02/17/25 18:59 06:59 18:59 Weight 50.6 kg 50.802 kg Other: Voiding Method Toilet # Voids 2 - Labs CBC & Chem 7: 02/18/25 04:33 02/18/25 04:33 Labs: Abnormal Lab Results - Last 24 Hours (Table) 02/16/25 02/16/25 02/17/25 Range/Units 15:36 15:36 05:02 RBC 4.03 L 3.61 L (4.10-5.20) 10*6/uL Hgb 10.9 L (12.0-15.0) g/dL Hct 33.8 L (37.2-46.3) % Plt Count 120 L 125 L (140-440) 10*3/uL MPV 12.6 H (9.5-12.2) FL BUN 33 H (7-17) mg/dL Creatinine 1.16 H (0.52-1.04) mg/dL Est GFR (CKD-EPI) (>=60) BUN/Creatinine Ratio (12.00-20.00) Ratio Calcium (8.7-10.3) mg/dL Total Protein (6.2-8.2) g/dL Albumin (3.8-4.9) g/dL 02/17/25 Range/Units 05:02 RBC (4.10-5.20) 10*6/uL Hgb (12.0-15.0) g/dL Hct (37.2-46.3) % Plt Count (140-440) 10*3/uL MPV (9.5-12.2) FL BUN 28.8 H (7-17) mg/dL Creatinine (0.52-1.04) mg/dL Est GFR (CKD-EPI) 56 L (>=60) BUN/Creatinine Ratio 28.80 H (12.00-20.00) Ratio Calcium 8.5 L (8.7-10.3) mg/dL Total Protein 5.7 L (6.2-8.2) g/dL Albumin 3.6 L (3.8-4.9) g/dL
--- NOTE | 2025-02-18 12:59 | MR ---
EXAMINATION TYPE: MR brain wo con DATE OF EXAM: 02/18/2025 12:46 PM COMPARISON: 02/16/2025. CLINICAL INDICATION: Female, 84 years old with history of weakness, left sided weaknss, falls; PHH, w eakness, left sided weakness, falls TECHNIQUE: Multi planar, multi sequence imaging was performed through the brain including: T1, T2, In version recovery, Diffusion weighted imaging, and gradient echo imaging. No gadolinium was given. FINDINGS: Restricted diffusion within the right mora radiata and right basal ganglia. The porras-white junctions, ventricular system, basal cisterns appear unremarkable. Scattered foci of high T2 signal intensity are seen within the periventricular white matter. Midline structures show n o abnormality. The susceptibility weighted images do not reveal any evidence for micro-hemorrhage. The bone marrow signal is within normal limits. Paranasal sinuses and mastoid air cells: No significant paranasal sinus disease. Visualized orbits: Bilateral aphakia IMPRESSION: 1. 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 2. Nonspecific white matter changes, likely secondary to small vessel ischemic disease. [facility], , 02/18/2025 12:56 PM
--- NOTE | 2025-02-18 14:38 | P.GSCN ---
History of Present Illness Consult date: 02/18/25 Reason for Consult: Symptomatic right ICA stenosis Requesting physician: Lawanda Gifford History of present illness: This a pleasant 84-year-old female with a past medical history of hypertension and aortic valve replacement in 2022. 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 Vazquez. She is a lifetime non-smoker, no previous history of TIA or stroke. She had presented to the emergency department Monday late afternoon with complaints of left-sided weakness. She reports Monday evening she was getting out of her car and she felt that her left leg was weak and was not supportive and she was drifting to the left side but she was able to make it in her house and symptoms had then resolved. Later that evening she was getting up to the bathroom and fell in her bathroom without any reported injury to her head. Then Monday after scientology again she was having left lower extremity weakness and and her family made her come in for further evaluation. She had a brain CT with no acute changes, she had a CT angiogram head and neck as part of her workup that reported 54% ICA stenosis on the right and less than 25% on the left. She was seen by neurology, they ordered MRI of the brain which was completed today with reported findings of right mora radiata and basal ganglia acute to subacute CVA. Vascular surgery was consulted for symptomatic right ICA stenosis. She currently denies any lower extremity weakness, states that she never had any left upper extremity weakness, no visual impairments or speech impairments. She denies any shortness of breath, chest pain, abdominal pain nausea or vomiting. She states last night she did have some muscle cramping in her lower extremities which is resolved. Review of Systems A 14 point review systems was completed all pertinent positives and negatives as stated in the HPI. Past Medical History Past Medical History: Hyperlipidemia, Hypertension History of Any Multi-Drug Resistant Organisms: None Reported Past Surgical History: No Surgical Hx Reported Additional Past Surgical History / Comment(s): aortic valve replacement (2022) Past Psychological History: No Psychological Hx Reported Smoking Status: Never smoker Past Alcohol Use History: None Reported Past Drug Use History: None Reported Medications and Allergies Home Medications Medication Instructions Recorded Confirmed Type Aspirin EC [Ecotrin Low Dose] 81 mg PO DAILY 02/16/25 02/16/25 History NIFEdipine XL [Procardia Xl] 30 mg PO DAILY 02/16/25 02/16/25 History lisinopriL [Prinivil] 20 mg PO HS 02/16/25 02/16/25 History Allergies Allergy/AdvReac Type Severity Reaction Status Date / Time Sulfa (Sulfonamide AdvReac headache Verified 02/16/25 18:12 Antibiotics) and blood pressure issues Surgical - Exam Vital Signs Temp Pulse Resp BP Pulse Ox 97.2 F L 66 16 156/70 98 02/16/25 15:24 02/16/25 15:24 02/16/25 15:24 02/16/25 15:24 02/16/25 15:24 General appearance: The patient is alert, oriented, appears in no acute distress. HET: Head is normocephalic and atraumatic. Pupils are equal and reactive. Neck: Supple. No audible bruit. Heart: Regular. Lungs: Equal expansion, normal respiratory effort. Abdomen: Soft, nontender, nondistended. Extremities: Normal skin color and turgor. Palpable radial and pedal pulses bilaterally. No lower extremity edema. Neurological: No focal deficits. Strength and sensation are grossly intact. Results - Labs 02/18/25 04:33 02/18/25 04:33 Abnormal Lab Results - Last 24 Hours (Table) 02/18/25 02/18/25 Range/Units 04:33 04:33 RBC 3.79 L (4.10-5.20) X 10*6/uL Hgb 11.5 L (12.0-15.0) g/dL Hct 35.5 L (37.2-46.3) % Plt Count 128 L (140-440) X 10*3/uL MPV 12.3 H (9.5-12.2) FL BUN/Creatinine Ratio 27.33 H (12.00-20.00) Ratio Diabetes panel 02/17/25 02/18/25 Range/Units 05:02 04:33 Sodium 140 (135-145) mmol/L Potassium 4.0 (3.5-5.5) mmol/L Chloride 107 (96-109) mmol/L Carbon Dioxide 25.6 (21.6-31.8) mmol/L BUN 24.6 (9.0-27.0) mg/dL Creatinine 0.9 (0.6-1.5) mg/dL Glucose 106 (70-110) mg/dL Hemoglobin A1c 6.0 (<=6.0) % Calcium 9.0 (8.7-10.3) mg/dL Triglycerides 67.70 (0.00-149.00) mg/dL HDL Cholesterol 58.00 (40.00-60.00) mg/dL Thyroid panel 02/17/25 Range/Units 05:02 TSH 1.310 (0.350-5.500) UIU/ML Calcium panel 02/18/25 Range/Units 04:33 Calcium 9.0 (8.7-10.3) mg/dL Pituitary panel 02/17/25 02/18/25 Range/Units 05:02 04:33 Sodium 140 (135-145) mmol/L Potassium 4.0 (3.5-5.5) mmol/L Chloride 107 (96-109) mmol/L Carbon Dioxide 25.6 (21.6-31.8) mmol/L BUN 24.6 (9.0-27.0) mg/dL Creatinine 0.9 (0.6-1.5) mg/dL Glucose 106 (70-110) mg/dL Calcium 9.0 (8.7-10.3) mg/dL TSH 1.310 (0.350-5.500) UIU/ML Adrenal panel 02/18/25 Range/Units 04:33 Sodium 140 (135-145) mmol/L Potassium 4.0 (3.5-5.5) mmol/L Chloride 107 (96-109) mmol/L Carbon Dioxide 25.6 (21.6-31.8) mmol/L BUN 24.6 (9.0-27.0) mg/dL Creatinine 0.9 (0.6-1.5) mg/dL Glucose 106 (70-110) mg/dL Calcium 9.0 (8.7-10.3) mg/dL - Imaging Comments: Brain MRI reports acute/subacute CVA involving the right mora radiata and right basal ganglia. Nonspecific white matter changes, likely secondary to small vessel ischemic disease CT angiogram head and neck reports no evidence of dissection of the cervical internal carotid arteries or vertebral arteries. 54% stenosis of the right carotid bifurcation. No evidence for significant stenosis of the left carotid bifurcation. No evidence of intracranial high-grade stenosis or intracranial aneurysm. Echocardiogram reports normal LV size and systolic function. Aortic valve by all prosthesis is not well seen but no significant gradient. Mild mitral and tricuspid regurgitation. No pulmonary hypertension. No pericardial effusion. Bubble study negative for [id number] shunt. Assessment and Plan Assessment: 1. 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 54% stenosis of right carotid bifurcation per CT angiogram 3. Left lower extremity weakness, now resolved 4. History of aortic valve replacement 2022 5. Hypertension Plan: 1. Continue aspirin 81 mg daily and Plavix 75 mg daily, consider adding statin 2. Agree with physical and Occupational Therapy 3. Further review of CTA per vascular surgeon 4. Further recommendations forthcoming from vascular surgeon 5. Continue with recommendations from neurology 6. If patient requires any surgical intervention she will need cardiac clearance and patient does prefer to see her cigarette making machine operator Dr. Vazquez Thank you for this consultation, we will continue to follow. The impression and plan of care has been dictated as directed. I performed a history and examination of this patient, discussed the same with the dictator. I agree with the dictator's note ,documented as a scribe. Any additional findings or plans will be noted.
[2025-02-18] MEDS: PANTOPRAZOLE 40 MG TABLET PO SCH (16:35)
[2025-02-18] MEDS: DOCUSATE 100 MG CAP PO SCH (20:08)
--- NOTE | 2025-02-19 05:08 | P.PN ---
Subjective Progress Note Date: 02/18/25 Patient presents to the ED with her for evaluation. Patient states that she noticed that she noticed that she was off balance towards her left side when she got out of her car at about 6 PM yesterday, and she feels that her left leg was weak at that time. Patient states that these symptoms then resolved, but returned again at about 1 AM this morning when she was going to the bathroom. Patient states that she fell in the bathroom due to this left leg weakness, and she bumped/injured her left forearm when she fell. Patient denies sustaining any other injury from her fall. Patient states that she had mild left leg weakness earlier today as well, but she denies having any left leg weakness currently. Patient also states that she has had a mild headache for the past couple of days. Patient denies sustaining a head injury when she fell, and she also denies LOC. Patient states that she does take aspirin daily, and she states that she took 2 baby aspirin earlier today. Patient also states that she has had urinary frequency since yesterday, but she denies dysuria or hematuria. Patient denies fever or chills, focal numbness, visual changes, speech difficulty, neck/back/lower extremity pain, chest pain, dyspnea, palpitations, dizziness, syncope, abdominal pain, nausea or vomiting, diarrhea, bloody or melanotic stool, or any other symptoms or complaints. EKG Findings:: Normal sinus rhythm, no ectopy, ventricular rate of 61 bpm, normal [place] and QRS intervals, normal QT interval, normal axis, no ST or T wave abnormality -Chest x-ray is reviewed myself and shows no acute cardiopulmonary process. I agree with the radiologist's interpretation as above. -Noncontrast head CT was reviewed myself and shows no acute intracranial abnormality. Patient has a normal/nonfocal neurological exam in the ED and an NIH stroke scale score of 0. Patient's noncontrast head imaging is negative. Patient's CT angiography neck demonstrates a 54% stenosis of the right carotid bifurcation. Patient has been treated with aspirin in the ED. Will admit the patient to the hospital for further TIA/CVA workup and neurology consultation. 02/17/2025 Patient is seen in follow-up today with family at bedside and continues to have left sided weakness and deficits with drifting noted while sitting in the chair. Patient reports she has a faint headache but denies any visual disturbances including lightheadedness, dizziness or double vision. Patient denies any histo ry of CVA or TIA in the past and does report hypertension. Patient awaiting neurology evaluation. CT of the brain was negative for acute process and angio CT was performed and MRI along with echo will be ordered. Patient reports she does have history of aortic valve replacement. Patient denies any chest pain or shortness of breath. Patient denies nausea or vomiting and has been tolerating diet. 02/18/2025 Patient is seen and evaluated in follow-up today to undergo MRI of the brain neurology following closely. Patient continues with some left-sided weakness which she reports is improved from yesterday will await MRI. Labs reviewed within normal limits. Patient is afebrile with no reports of chest pain or shortness of breath. Patient reports to tolerating diet with no reported nausea or vomiting. Vascular surgery has also been consulted per neurology for evaluation of stenosis on the right carotid bifurcation. Review of systems: Constitutional: No reports of fatigue, fever, or chills Cardiovascular: No reports of chest pain or palpitations Respiratory: No reports of shortness of breath or cough GI: No reports of nausea, vomiting, or diarrhea : No reports of dysuria or retention Neurovascular: reports of left-sided weakness mostly in lower extremity with difficulty ambulating, improving All medications have been reviewed Physical exam: Gen: This is a 84-year-old female who is awake, alert and oriented x 3, well- developed, elderly appearing, thin built HEENT: Head is atraumatic, normocephalic. Pupils equal, round. Sclerae is anicteric. NECK: Supple. No JVD. No lymphadenopathy. No thyromegaly. LUNGS: Diminished breath sounds bilaterally otherwise clear to auscultation. No wheezes or rhonchi. No intercostal retractions. HEART: S1, S2 are muffled ABDOMEN: Soft. Thin. Bowel sounds are present. No masses. No tenderness. EXTREMITIES: No pedal edema. No calf tenderness. NEUROLOGICAL: Patient is awake, alert and oriented x3. Cranial nerves 2 through 12 are grossly intact. Left upper extremity park recreation manager strength 4/5, lower extremity 4/5 Assessment: -Strokelike symptoms, with left-sided weakness and difficulty ambulating, confirmed CVA on MRI -Patient's CT angiography neck demonstrates a 54% stenosis of the right carotid bifurcation. -Acute renal injury, improved with gentle hydration -Hypertension history -Hyperlipidemia history -History of aortic valve replacement in 2022 -DVT prophylaxis; SCDs -GI prophylaxis -full code Plan: Patient was admitted with left-sided weakness and difficulty ambulating that abruptly occurred with concerns of possible CVA. Neurology following and ordered MRI of the brain which is positive for acute/subacute CVA involving the right mora radiata and right basal ganglia Patient did undergo CT angiogram with noted 54% stenosis on the right carotid bifurcation and is maintained on statin therapy along with aspirin, vascular surgery consulted Continue aspirin and statin therapy and Plavix has been started Recommend PT/OT therapy for the left-sided weakness Will await vascular surgery input and recommendations Possible discharge in the next 24 to 48 hours Overall prognosis is guarded at this time The impression and plan of care has been dictated by Cristy Alanis, Nurse Practitioner as directed. Dr. Lyle MD I have performed a history and examination and MDM of this patient, discussed the same with the dictator, and agree with the dictator's assessment and plan as written ,documented as a scribe. Based on total visit time, I have performed more than 50% of the visit. Objective - Vital Signs Vital signs: Vital Signs Temp 97.9 F 02/18/25 07:32 Pulse 60 02/18/25 07:32 Resp 16 02/18/25 08:30 BP 136/63 02/18/25 07:32 Pulse Ox 97 02/18/25 07:32 FiO2 Intake & Output 02/17/25 02/18/25 02/18/25 18:59 06:59 18:59 Intake Total 358 Balance 358 Intake: Oral 358 Other: Voiding Method Toilet Toilet # Voids 2 2 - Labs CBC & Chem 7: 02/18/25 04:33 02/18/25 04:33 Labs: Abnormal Lab Results - Last 24 Hours (Table) 02/18/25 02/18/25 Range/Units 04:33 04:33 RBC 3.79 L (4.10-5.20) X 10*6/uL Hgb 11.5 L (12.0-15.0) g/dL Hct 35.5 L (37.2-46.3) % Plt Count 128 L (140-440) X 10*3/uL MPV 12.3 H (9.5-12.2) FL BUN/Creatinine Ratio 27.33 H (12.00-20.00) Ratio
[2025-02-19 08:01] VITALS: BP 120/59; PULSE 57; TEMP 97.8
[2025-02-19] MEDS: ACETAMINOPHEN TAB 325 MG TAB PO PRN (09:24)
--- NOTE | 2025-02-19 10:36 | P.PN ---
Subjective Progress Note Date: 02/19/25 Principal diagnosis: Symptomatic right ICA stenosis Patient is seen and examined today as a follow-up. She is up and ambulating in her room. She denies any new focal deficits and denies any left lower extremity weakness. She does report that she had bilateral lower extremity muscle cramping again through the night. She denies any previous statin use, states that it has not been recommended from her help desk support specialist. Her last appointment with her help desk support specialist Dr. Vazquez was in December of this year. Objective - Vital Signs Vital signs: Vital Signs Temp 97.8 F 02/19/25 07:28 Pulse 57 L 02/19/25 07:28 Resp 16 02/19/25 08:30 BP 120/59 02/19/25 07:28 Pulse Ox 96 02/19/25 07:28 FiO2 Intake & Output 02/18/25 02/19/25 02/19/25 18:59 06:59 18:59 Intake Total 480 240 Balance 480 240 Intake: Oral 480 240 Other: Voiding Method Toilet Toilet Toilet # Voids 3 3 1 # Bowel Movements 1 - Exam General appearance: The patient is alert, oriented, appears in no acute distress. HET: Head is normocephalic and atraumatic. Pupils are equal and reactive. Neck: Supple. No carotid bruit. Heart: Regular. Lungs: Equal expansion, normal respiratory effort. Abdomen: Soft, nontender, nondistended. Extremities: Normal skin color and turgor. Neurological: No focal deficits. Strength and sensation are grossly intact. - Labs CBC & Chem 7: 02/18/25 04:33 02/18/25 04:33 Assessment and Plan Assessment: 1. 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 Symptomatic right ICA stenosis 3. 54% stenosis of right carotid bifurcation per CT angiogram, CTA independently reviewed and likely greater than 54% stenosis of right carotid bifurcation 4. Left lower extremity weakness, now resolved 5. History of aortic valve replacement 2022 6. Hypertension Plan: 1. Continue aspirin 81 mg daily and Plavix 75 mg daily, recommend adding atorvastatin 40 mg at at bedtime 2. Agree with physical and Occupational Therapy 3. Continue with recommendations from neurology 4. Recommend right carotid intervention. Discussed surgical options TCAR versus carotid endarterectomy. CTA head and neck disc made for review to see if patient will qualify for TCAR 5. Will plan for outpatient follow-up next week Monday following her appointment with her help desk support specialist Dr. Vazquez on Monday. Will further discuss surgical options and interventions and plan to schedule within the next couple weeks. Thank you for this consultation, patient is cleared from vascular surgery for discharge. The impression and plan of care has been dictated as directed. Dr. Diaz I performed a history and examination of this patient, discussed the same with the dictator. I agree with the dictator's note ,documented as a scribe. Any additional findings or plans will be noted.
--- NOTE | 2025-02-19 11:05 | P.PN ---
Subjective Progress Note Date: 02/18/25 Patient was seen for follow-up. Multiple family members were present by the bedside. No new concerns. Patient is stable clinically. Patient is laying comfortably in the bed. Objective - Vital Signs Vital signs: Vital Signs Temp 97.9 F 02/18/25 07:32 Pulse 60 02/18/25 07:32 Resp 16 02/18/25 08:30 BP 136/63 02/18/25 07:32 Pulse Ox 97 02/18/25 07:32 FiO2 Intake & Output 02/17/25 02/18/25 02/18/25 18:59 06:59 18:59 Intake Total 358 360 Balance 358 360 Intake: Oral 358 360 Other: Voiding Method Toilet Toilet # Voids 2 2 - Exam Mental status, speech and language functions are normal. Cranial nerves are normal. Visual davis are full. Face is symmetric. On muscle strength testing, patient has mild right pronation, but no drift. Interestingly her stroke is on the left side, but the pronation was on the right. The strength is normal in the arms and legs. No ataxia for [id number] testing. Sensory touch is equal bilaterally. Tone and bulk of muscles normal. - Labs CBC & Chem 7: 02/18/25 04:33 02/18/25 04:33 Labs: Abnormal Lab Results - Last 24 Hours (Table) 02/18/25 02/18/25 Range/Units 04:33 04:33 RBC 3.79 L (4.10-5.20) X 10*6/uL Hgb 11.5 L (12.0-15.0) g/dL Hct 35.5 L (37.2-46.3) % Plt Count 128 L (140-440) X 10*3/uL MPV 12.3 H (9.5-12.2) FL BUN/Creatinine Ratio 27.33 H (12.00-20.00) Ratio Assessment and Plan Assessment: * Acute ischemic stroke involving right mora radiata and right basal ganglia. Patient has presented with veering to the left and tendency to fall. She did fall once. No other lateralizing symptoms. * Hypertension * Hyperlipidemia * History of TAVR for critical aortic stenosis in May 2023 * Right ICA stenosis at bifurcation, 54% per CTA * Thrombocytopenia, mild Plan: * MRI of the brain without contrast, confirmed acute/subacute CVA involving the right mora radiata and right basal ganglia. Nonspecific white matter changes, likely secondary to small vessel ischemic disease. I personally reviewed MRI agree with the findings. * 2-D echo revealed normal LV size and systolic function with EF 55 to 60%. Normal left ventricular wall motion. Mildly increased left atrial volume. No left atrial thrombus or mass. Negative agitated saline bubble study for [id number] shunt. Aortic valve bioprosthesis is not well seen but no significant gradient. * CTA of head and neck revealed no evidence of dissection of the cervical internal carotid arteries or vertebral arteries. 54% stenosis of the right carotid bifurcation. No evidence for significant stenosis of the left carotid bifurcation. No evidence of intracranial high-grade stenosis or intracranial aneurysm. * Patient probably has symptomatic right ICA stenosis. We will consult vascular surgery. * Fasting a.m. lipid panel cholesterol 198, LDL 126, HDL 58 and triglycerides 67. * Hemoglobin A1c 6.0 * B12 702, folate 5.8, TSH 1.31. We will start folate replacement. * Optimize control of blood pressure. Avoid hypotension. * Patient was on aspirin 81 mg daily. With recurrent symptoms, we will place h er on Plavix 75 mg daily for now. * Neuro checks every 4 hours. * Telemetry monitoring rule out any arrhythmia * PT, OT, speech therapy * DVT prophylaxis: Lovenox 40 mg subcu daily * Discussed with family members in detail
[2025-02-19] MEDS: FOLIC ACID 1 MG TAB PO SCH (11:38)
[2025-02-19] MEDS ORDERED: ATORVASTATIN 40 MG TAB PO SCH (21:00)
--- NOTE | 2025-02-20 10:58 | P.PN ---
Subjective Progress Note Date: 02/19/25 Patient was seen for follow-up. Patient's was present by the bedside. No new concerns. Patient is sitting on the side of the bed. States doing better. Objective - Vital Signs Vital signs: Vital Signs Temp 97.8 F 02/19/25 07:28 Pulse 57 L 02/19/25 07:28 Resp 16 02/19/25 08:30 BP 120/59 02/19/25 07:28 Pulse Ox 96 02/19/25 07:28 FiO2 Intake & Output 02/18/25 02/19/25 02/19/25 18:59 06:59 18:59 Intake Total 480 240 Balance 480 240 Intake: Oral 480 240 Other: Voiding Method Toilet Toilet Toilet # Voids 3 3 1 # Bowel Movements 1 - Exam Mental status, speech and language functions are normal. Cranial nerves are normal. Visual davis are full. Face is symmetric. On muscle strength testing, patient has mild right pronation, but no drift. Interestingly her stroke is on the left side, but the pronation was on the right. The strength is normal in the arms and legs. No ataxia for [id number] testing. Sensory touch is equal bilaterally. Tone and bulk of muscles normal. - Labs CBC & Chem 7: 02/18/25 04:33 02/18/25 04:33 Assessment and Plan Assessment: * Acute ischemic stroke involving right mora radiata and right basal ganglia. Patient has presented with veering to the left and tendency to fall. She did fall once. No other lateralizing symptoms. * Hypertension * Hyperlipidemia * History of TAVR for critical aortic stenosis in May 2023 * Right ICA stenosis at bifurcation, 54% per CTA * Thrombocytopenia, mild Plan: * Clinically patient is doing very well. Her NIH stroke scale remains 0. * MRI of the brain without contrast, confirmed acute/subacute CVA involving the right mora radiata and right basal ganglia. Nonspecific white matter changes, likely secondary to small vessel ischemic disease. I personally reviewed MRI agree with the findings. * 2-D echo revealed normal LV size and systolic function with EF 55 to 60%. Normal left ventricular wall motion. Mildly increased left atrial volume. No left atrial thrombus or mass. Negative agitated saline bubble study for r [id number] shunt. Aortic valve bioprosthesis is not well seen but no significant gradient. * CTA of head and neck revealed no evidence of dissection of the cervical internal carotid arteries or vertebral arteries. 54% stenosis of the right carotid bifurcation. No evidence for significant stenosis of the left carotid bifurcation. No evidence of intracranial high-grade stenosis or intracranial aneurysm. * Patient probably has symptomatic right ICA stenosis. Vascular surgery input appreciated. They are recommending right carotid intervention. Patient will follow-up in their office to schedule right carotid revascularization surgery as an outpatient. Patient to be considered between CEA versus TCAR. * Fasting a.m. lipid panel cholesterol 198, LDL 126, HDL 58 and triglycerides 67. Patient started on Lipitor 40 mg by vascular surgery. * Hemoglobin A1c 6.0 * B12 702, folate 5.8, TSH 1.31. We will start folate replacement. * Optimize control of blood pressure. Avoid hypotension. * Continue dual antiplatelet therapy, aspirin 81 mg and Plavix 75 mg. * Telemetry monitoring rule out any arrhythmia * PT, OT, speech therapy * Discussed with family members in detail * Neurologically clear for discharge.
== END 2025-02-19 14:54 | disposition home or self-care (01) | DRG 65 ==
LOC: EC 15:21 → 6NMEDSUR 18:22
PROVIDERS: ADMIT Internal Medicine; ATTEND Internal Medicine
DX: I63.81 Other cerebral infarction due to occlusion or stenosis of small artery (principal); G81.94 Hemiplegia, unspecified affecting left nondominant side; D69.6 Thrombocytopenia, unspecified; I10 Essential (primary) hypertension; I65.21 Occlusion and stenosis of right carotid artery; I35.0 Nonrheumatic aortic (valve) stenosis; N17.9 Acute kidney failure, unspecified; R35.0 Frequency of micturition; R26.2 Difficulty in walking, not elsewhere classified; E78.5 Hyperlipidemia, unspecified; S40.022A Contusion of left upper arm, initial encounter; W19.XXXA Unspecified fall, initial encounter; Y92.002 Bathroom of unspecified non-institutional (private) residence as the place of occurrence of the external cause; Z79.82 Long term (current) use of aspirin; Z95.2 Presence of prosthetic heart valve; Z79.899 Other long term (current) drug therapy
CPT/HCPCS: 36415; 70450; 70496; 70498; 70551; 71046; 80048; 80053; 80061; 81003; 82550; 82607; 82746; 83036; 83735; 84443; 84484; 85025; 85610; 85730; 93005; 93306; 96360; 99291

== ENCOUNTER → 2025-03-18 | Outpatient (CLI) | payer MEDICARE ==
[2025-03-18 15:18] LABS: ALT 16 U/L (8-44); AST 20 U/L (13-35); Albumin 4.1 g/dL (3.8-4.9); Albumin/Globulin Ratio 1.52 Ratio (1.60-3.17); Alkaline Phosphatase 87 U/L (41-126); Bilirubin, Conjugated 0.26 mg/dL (0.20-0.40); Bilirubin,Unconjugated 0.44 mg/dL (0.20-1.00); Blood Urea Nitrogen 21.9 mg/dL (9.0-27.0); Calcium 9.6 mg/dL (8.7-10.3); Carbon Dioxide 26.2 mmol/L (21.6-31.8); Chloride 104 mmol/L (96-109); Chol/HDL Ratio 2.94 Ratio; Globulin 2.7 g/dL (1.6-3.3); Glucose 103 mg/dL (70-110); LDL Cholesterol,Calculated 89.9 mg/dL (0.0-131.0); Potassium 4.2 mmol/L (3.5-5.5); Sodium 141 mmol/L (135-145); Total Bilirubin 0.7 mg/dL (0.3-1.2); Total Protein 6.8 g/dL (6.2-8.2)
[2025-03-18 15:21] LABS: MCH 30.7 pg (27.0-32.0); MCHC 32.5 g/dL (32.0-37.0); MCV 94.3 FL (80.0-97.0); Mean Platelet Volume 12.5 FL (9.5-12.2); NRBC Per 100 WBC 0 X 10*3/uL (0.00-0.01); Platelet Count 132 X 10*3/uL (140-440); RBC 4.24 X 10*6/uL (4.10-5.20); RDW 12.5 % (11.5-14.5); WBC 6.64 X 10*3/uL (4.50-10.00)
[2025-03-18 15:25] LABS: Appearance,Urine Cloudy (Clear); Bilirubin,Urine Negative (Negative); Blood,Urine Trace (Negative); Color,Urine Yellow (Yellow); Ketones,Urine Negative (Negative); Nitrite,Urine Negative (Negative); PH, Urine 7.5; Specific Gravity,Urine 1.018 (1.001-1.030); Urobilinogen,Urine 0.2 E.U./DL
[2025-03-18 15:36] LABS: Bacteria,Urine 3+ (None Seen)
[2025-03-18 15:46] LABS: INR 0.95 sec (0.93-1.11); Prothrombin Time 10.7 sec (9.9-11.9)
== END | disposition home or self-care (01) ==
LOC: LABWHC1 11:20
PROVIDERS: ATTEND Internal Medicine Cardiovascular Disease
DX: I25.10 Atherosclerotic heart disease of native coronary artery without angina pectoris (principal)
CPT/HCPCS: 36415; 80053; 80061; 81001; 82248; 85027; 85610

== ENCOUNTER → 2025-04-25 | Outpatient (CLI) | payer MEDICARE ==
[2025-04-25 15:09] LABS: Bilirubin,Urine Negative (Negative); Blood,Urine Negative (Negative); Color,Urine Yellow (Yellow); Ketones,Urine Negative (Negative); Nitrite,Urine Positive (Negative); PH, Urine 7.5; Specific Gravity,Urine 1.018 (1.001-1.030); Urobilinogen,Urine 0.2 E.U./DL
[2025-04-25 15:12] LABS: HCT 38.9 % (37.2-46.3); HGB 12.6 g/dL (12.0-15.0); MCH 30.7 pg (27.0-32.0); MCHC 32.4 g/dL (32.0-37.0); MCV 94.9 FL (80.0-97.0); NRBC Per 100 WBC 0 X 10*3/uL (0.00-0.01); Platelet Count 120 X 10*3/uL (140-440); RBC 4.10 X 10*6/uL (4.10-5.20); RDW 12.7 % (11.5-14.5); WBC 5.38 X 10*3/uL (4.50-10.00)
[2025-04-25 15:17] LABS: Bacteria,Urine 4+ (None Seen)
[2025-04-25 15:24] LABS: ALT 19 U/L (8-44); AST 21 U/L (13-35); Albumin 4.1 g/dL (3.8-4.9); Albumin/Globulin Ratio 1.64 Ratio (1.60-3.17); Alkaline Phosphatase 84 U/L (41-126); Anion Gap 10.40 mmol/L (4.00-12.00); BUN/Creat Ratio 22.89 Ratio (12.00-20.00); Bilirubin,Unconjugated 0.43 mg/dL (0.20-1.00); Blood Urea Nitrogen 20.6 mg/dL (9.0-27.0); Calcium 9.4 mg/dL (8.7-10.3); Carbon Dioxide 26.6 mmol/L (21.6-31.8); Chloride 108 mmol/L (96-109); Cholesterol 170.00 mg/dL (0.00-200.00); Globulin 2.5 g/dL (1.6-3.3); Glucose 107 mg/dL (70-110); HDL Cholesterol 61.40 mg/dL (40.00-60.00); LDL Cholesterol,Calculated 88.0 mg/dL (0.0-131.0); Potassium 4.1 mmol/L (3.5-5.5); Sodium 145 mmol/L (135-145); Total Protein 6.6 g/dL (6.2-8.2); Triglycerides 103.00 mg/dL (0.00-149.00); VLDL Calculation 20.60 mg/dL (5.00-40.00)
[2025-04-25 15:59] LABS: INR 0.94 sec (0.93-1.11); Prothrombin Time 10.6 sec (9.9-11.9)
== END | disposition home or self-care (01) ==
LOC: LABWHC1 11:06
PROVIDERS: ATTEND Internal Medicine Cardiovascular Disease
DX: I25.10 Atherosclerotic heart disease of native coronary artery without angina pectoris (principal)
CPT/HCPCS: 36415; 80053; 80061; 81001; 82248; 85027; 85610